=== PATIENT | female | born 1990 | race Hispanic/Latino ===

== ENCOUNTER 2016-06-29 19:58 | Inpatient (IN) | payer MEDICAID ==
[2016-06-29] MEDS ORDERED: LACTATED RINGERS 1,000 ML ONE (22:39)
[2016-06-29] MEDS ORDERED: PEPCID IV ONE ×2 (22:53→22:58)
[2016-06-29] MEDS ORDERED: REGLAN ONE (22:53)
[2016-06-29] MEDS ORDERED: BICITRA ONE (22:53)
[2016-06-29] MEDS ORDERED: PITOCin/NS 20 UNIT/1000ML DRIP 1,000 ML IV ONE (22:54)
[2016-06-29] MEDS ORDERED: REGLAN IV ONE (22:58)
[2016-06-29] MEDS ORDERED: BICITRA PO ONE (22:58)
[2016-06-29] MEDS ORDERED: LACTATED RINGERS 1,000 ML IV NR (23:00)
[2016-06-29] MEDS ORDERED: ANCEF/STERILE WATER 2 GM/20 ML 20 ML IV NR (23:00)
[2016-06-29] MEDS ORDERED: PITOCin/NS 20 UNIT/1000ML DRIP 1,000 ML IV SCH (23:00)
[2016-06-29] MEDS ORDERED: LACTATED RINGERS 1,000 ML IV SCH (23:00)
--- NOTE | 2016-06-29 23:08 | History and Physical Report ---
History of Present Illness Date of examination: 06/29/16 Date of admission: 06/29/16 22:26 Chief complaint: Leaking fluid and contractions History of present illness: Pt is a 25yo WF EDC 06/30/16; EGA 39 6/7 weeks presents to L&D complaining of leaking fluid and contractions since 1900 today. 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 However BPP is /10 and she is remote from delivery, so we will proceed with a Repeat C Section. She states course was unremarkable, and records are not available. GBS unknown. Past History Past Medical History: no pertinent history Past Surgical History: section Family/Genetic History: none Social history: no significant social history, single - Obstetrical History Expected Date of Delivery: 06/30/16 Actual Gestation: 39 Week(s) 6 Day(s) : 2 Medications and Allergies Allergies Allergy/AdvReac Type Severity Reaction Status Date / Time ibuprofen Allergy Hives Verified 06/29/16 22:43 Home Medications Medication Instructions Recorded Confirmed Last Taken Type Sulfamethoxazole/Trimethoprim 1 each PO BID #14 tablet 08/09/15 Unknown Rx [Bactrim DS TAB] traMADol [Ultram] 50 mg PO Q6H PRN #12 tablet 08/09/15 Unknown Rx Active Meds: Active Medications Lactated Ringer's (Lactated Ringers) 1,000 mls @ 125 mls/hr IV DIRECT BIANCA Review of Systems All systems: negative - Physical Exam Breasts: Positive: deferred Cardiovascular: Regular rate Lungs: Positive: Clear to auscultation Abdomen: Positive: normal appearance Genitourinary (Female): Positive: normal external genitalia Vagina: Positive: normal moisture Uterus: Positive: enlarged Extremities: Positive: normal - Obstetrical FHR: category 1 Uterine Contraction Monitor Mode: External Cervical Dilatation: 3 Cervical Effacement Percentage: 50 station: -2 Results All other labs normal. Ultrasound: report reviewed (Cunningham, DOMINGO 6.8, BPP 4/8 ) Assessment and Plan - Patient Problems (1) 39 weeks gestation of Diagnosis Date: 06/29/16 Current Visit: Yes Status: Acute Plan to address problem: A: IUP @ 39 6/7 weeks Previous C Section Non- reassuring surveillance P: Admit to L&D for repeat C Section Obtain records (2) Previous delivery affecting Diagnosis Date: 06/29/16 Current Visit: Yes Status: Acute (3) Non-reassuring electronic monitoring tracing Diagnosis Date: 06/29/16 Current Visit: Yes Status: Acute
[2016-06-29 23:15] LABS: Hematocrit 34.2 % (30.3-42.9); Hemoglobin 11.4 gm/dl (10.1-14.3); Mean Corpuscular HGB Conc 33 % (30-34); Mean Corpuscular Hemoglobin 31 pg (28-32); Mean Corpuscular Volume 93 fl (79-97); Platelet Count 234 K/mm3 (140-440); Red Blood Count 3.68 M/mm3 (3.65-5.03); Red Cell Distribution Width 13.7 % (13.2-15.2)
[2016-06-29] MEDS ORDERED: MORPHINE ONE (23:20)
[2016-06-29] MEDS ORDERED: ANCEF/STERILE WATER 2 GM/20 ML IV ONE (23:20)
[2016-06-29] MEDS ORDERED: WATER FOR IRRIG STERILE IR ONE (23:30)
[2016-06-29] MEDS ORDERED: NACL 0.9% IR ONE (23:30)
[2016-06-29] MEDS ORDERED: ePHEDrine SULFATE ONE (23:42)
[2016-06-29] MEDS ORDERED: ZOFRAN ONE (23:44)
[2016-06-30] MEDS ORDERED: NARCAN 0.4 MG/1 ML IV PRN (00:21)
[2016-06-30] MEDS ORDERED: SENOKOT PO PRN (00:21)
[2016-06-30] MEDS ORDERED: TUCKS PAD TP PRN (00:21)
[2016-06-30] MEDS ORDERED: TYLENOL PO PRN (00:21)
[2016-06-30] MEDS ORDERED: LANSINOH TP PRN (00:21)
[2016-06-30] MEDS ORDERED: MILK OF MAGNESIA PO PRN (00:21)
[2016-06-30] MEDS ORDERED: PHENERGAN PR PRN (00:21)
[2016-06-30] MEDS ORDERED: ZOFRAN IV PRN (00:21)
[2016-06-30] MEDS ORDERED: MYLICON PO PRN (00:21)
--- NOTE | 2016-06-30 00:29 | Operative Report ---
Operative Report Operative Report: Date of procedure: 06/29/2016 Pre-operative diagnosis: 1. Intrauterine at 39-6/7 weeks 2. Previous section 3. Nonreassuring surveillance Post-operative diagnosis: Same Procedure name(s): Repeat low transverse section Surgeon: Obdulio Cota MD Executive Vice President Of Sales: None Anesthesia: Spinal anesthesia by Dr. Tyler Phillips EBL: 600 MLS Findings: A 2871 g female infant Apgars 8 at 1 minute 9 at 5 minutes. Clear amniotic fluid. Normal uterus. Normal tubes and ovaries bilaterally. Procedure: After the patient was prepped and draped in usual sterile fashion, and after satisfactory level of epidural anesthesia was obtained, the skin knife was used to make a transverse skin incision through the previous skin scar. The incision was excised down to layer of the fascia, which was nicked in the midline and extended laterally using the Bovie cautery. The rectus muscles were dissected off the rectus fascia both superiorly and inferiorly. The rectus bellies in the midline, and the peritoneum was entered under direct visualization. The peritoneal incision was extended superiorly and inferiorly. A bladder flap was created and the bladder blade was then placed. The uterus was scored in a curvilinear linear fashion, entered in the midline revealing clear amniotic fluid. The 's head was delivered onto the surgical field, and the oropharynx and nasopharynx were bulb suctioned. The rest of the infant's body was delivered, cord was doubly clamped and cut and the was handed to the waiting respiratory team. Cord blood was then obtained. The placenta was manually removed from the uterus, and the uterus removed from its normal anatomical position. After gentle uterine lavage, the incision was inspected and found to be without extensions. It was then closed in 2 layers using 0 Vicryl suture in a running interlocking fashion, the second layer imbricating the first. After good hemostasis was achieved, copious amounts or irrigation was performed, and the gutters were suctioned free of blood and blood clots. The Tisseel sealant was sprayed across the uterine incision. The uterus was then returned to its normal anatomical position, and after excellent hemostasis assured, the peritoneum was reapproximated using 3-0 Vicryl suture in a running interlocking fashion, and then the rectus muscles were reapproximated using 3-0 Vicryl suture in a [id number] configuration. The fascia was then reapproximated using 0 Vicryl suture in running interlocking fashion. The subcutaneous layer was made hemostatic using Bovie cautery, the Tisseel sealant was sprayed across the fascial incision and the skin edges reapproximated using 4-0 Vicryl suture in a subcuticular fashion. Patient tolerated the procedure well was transported to recovery in stable condition.
--- NOTE | 2016-06-30 00:36 | Post Anesthesia Evaluation ---
- Post Anesthesia Evaluation Patient Participated: Yes Airway Patent: Yes Stable Respiratory Function: Yes Nausea/Vomiting: No Temp > 96.8F: Yes Pain Manageable: Yes Adequeate Hydration: Yes Anesthesia Complications: No Block Receding Appropriately: Yes Patient on Ventilator: No
--- NOTE | 2016-06-30 00:36 | Anesthesia Consultation ---
Anesthesia Consult and Med Hx Date of service: 06/30/16 - Airway Anesthetic Teeth Evaluation: Good ROM Head & Neck: Adequate Mental/Hyoid Distance: Adequate Mallampati Class: Class II Intubation Access Assessment: Probably Good - Pulmonary Exam CTA: Yes - Cardiac Exam Cardiac Exam: RRR - Pre-Operative Health Status ASA Pre-Surgery Classification: ASA2 Proposed Anesthetic Plan: Spinal - Pulmonary Hx Asthma: No - Cardiovascular System Hx Hypertension: No - Central Nervous System Hx Seizures: No Hx Psychiatric Problems: No - Endocrine Hx Renal Disease: No Hx Hypothyroidism: No Hx Hyperthyroidism: No - Hematic Hx Anemia: No Hx Sickle Cell Disease: No - Other Systems Hx Alcohol Use: No
[2016-06-30] MEDS ORDERED: D5LR 1,000 ML IV SCH (01:00)
[2016-06-30] MEDS ORDERED: SODIUM CHLORIDE FLUSH SYRINGE 10 ML IV PRN (01:00)
[2016-06-30] MEDS: PITOCin/NS 20 UNIT/1000ML DRIP 1,000 ML IV SCH ×2 (01:01→01:20)
[2016-06-30] MEDS ORDERED: BENADRYL IV PRN (03:17)
[2016-06-30] MEDS: PERCOCET 5/325 PO PRN ×4 (03:47→22:35)
[2016-06-30] MEDS: ANCEF/NS 1 GM/50 ML 50 ML IV SCH ×2 (06:35→14:25)
--- NOTE | 2016-06-30 07:39 | Ultrasound Report ---
BIOPHYSICAL PROFILE: History: Rupture of membranes. Technique: Transabdominal ultrasound with Doppler interrogation. 0 - breathing movements 2 - movements 0 - posture and tone 2 - Qualitative amniotic fluid volume 4 - TOTAL SCORE OF POSSIBLE 8 Heart Rate (bpm) 142
--- NOTE | 2016-06-30 07:40 | Ultrasound Report ---
OB LIMITED History: Rupture of membranes Technique: Transabdominal ultrasound with Doppler interrogation. Gestation: Single Amniotic Fluid: Decreased DOMINGO = 6.8 cm Heart Rate: 137 BPM
--- NOTE | 2016-06-30 11:13 | Progress Note ---
Assessment and Plan A: PP/POD#1 s/p R c/s Pain well controlled Stable P: Continue Routine PP/PO care D/C kenney, SCD's and IVF Start PO pain medication Encouraged ambulation in room this afternoon. Subjective - Subjective Date of service: 06/30/16 Principal diagnosis: Repear section Interval history: See H&P and operative note Patient reports: appetite normal, voiding normally, pain well controlled, flatus , ambulating normally : doing well, bottle feeding Objective - Vital Signs Latest vital signs: Vital Signs Temp Pulse Pulse Pulse Resp BP BP 06/30/16 07:55 99.0 F 74 18 104/50 06/30/16 04:50 98.0 F 78 20 06/30/16 03:47 18 06/30/16 02:05 97.3 F L 69 20 06/30/16 01:30 66 18 91/69 06/30/16 01:15 64 16 106/65 06/30/16 00:56 63 17 109/62 06/30/16 00:41 67 17 97/60 06/30/16 00:35 68 14 98/57 06/30/16 00:30 97.8 F 67 17 102/53 BP Pulse Ox 06/30/16 07:55 06/30/16 04:50 123/73 06/30/16 03:47 06/30/16 02:05 105/66 06/30/16 01:30 97 06/30/16 01:15 96 06/30/16 00:56 97 06/30/16 00:41 99 06/30/16 00:35 99 06/30/16 00:30 99 Intake and Output 06/29/16 06/30/16 06/30/16 22:59 06:59 14:59 Intake Total 1740 Output Total 900 Balance 840 Intake: IV 1500 PITOCin/NS 20 UNIT/1000ML 500 DRIP 1,000 ML @ 125 mls/ hr IV TITR BIANCA Rx#: [id number] Oral 240 Output: Urine 900 Uretheral (Kenney) 600 Indwelling Catheter 300 Other: Total, Intake Amount 240 Total, Output Amount 300 Weight 86.183 kg Estimated Blood Loss 600 - Exam Breasts: Present: normal Cardiovascular: Present: Regular rate Lungs: Present: Normal air movement Abdomen: Present: normal appearance, soft Vulva: both: normal Uterus: Present: firm, fundal height below umbilicus (-1) Extremities: Present: normal Deep Tendon Reflex Grade: Normal +2 Incision: Present: normal, dry, intact, dressed (LTI, closed with pressure drressing, CDI) - Labs Labs: Abnormal lab results 06/29/16 Range/Units 22:30 WBC 20.0 H (4.5-11.0) K/mm3
[2016-06-30] MEDS: FEOSOL PO SCH (11:28)
[2016-06-30] MEDS: PRENATAL VITAMIN PO SCH (11:29)
[2016-06-30] MEDS: NORCO 5/325 PO PRN ×2 (14:26→20:16)
[2016-06-30 15:19] LABS: Hematocrit 28.5 % (30.3-42.9); Hemoglobin 9.6 gm/dl (10.1-14.3)
--- NOTE | 2016-06-30 15:30 | Progress Note ---
Subjective Date of service: 06/30/16 Principal diagnosis: Repear section Interval history: 1st POD after Patient is in the bed, comfortable. Pain is well controlled with pain meds. Ambulated well. No residual neurological deficit. No anesthesia complications Objective - Constitutional Vitals: Vital Signs - 12hr 06/30/16 06/30/16 06/30/16 03:47 04:50 07:55 Temperature 98.0 F 99.0 F Pulse Rate [ 74 Left Radial] Pulse Rate [ 78 Right] Respiratory 18 20 18 Rate Blood Pressure 104/50 [Left Arm] Blood Pressure 123/73 [Right Arm] 06/30/16 12:07 Temperature 98.5 F Pulse Rate [ 72 Left Radial] Pulse Rate [ Right] Respiratory 16 Rate Blood Pressure 96/50 [Left Arm] Blood Pressure [Right Arm] - Labs CBC & Chem 7: 06/30/16 15:02 Labs: Abnormal lab results 06/29/16 06/30/16 Range/Units 22:30 15:02 WBC 20.0 H (4.5-11.0) K/mm3 Hgb 9.6 L (10.1-14.3) gm/dl Hct 28.5 L (30.3-42.9) %
--- NOTE | 2016-06-30 16:18 | Query-Anemia ---
Dear Dr. Obdulio Cota Date:June 30, 2016 News Videotape Editor/CDS: Kameron Bland Phone#: Exercise your independent professional judgment when responding to this query. Questions asked do not imply a particular answer is desired or expected. We greatly appreciate your clarification on this issue. Clinical Documentation States: 25 y/o WF @ 39 6/7 weeks with history of previous is admitted for /10 BPP and unknown GBS status. H&P by Dr. Cota on 06/29 states : "(3) Non-reassuring electronic monitoring tracing" Operative Report by Dr. Cota on 06/30 states : "EBL: 600 MLS" Clinical Findings Show: 06/29 06/30 Hgb 11.4 9.6 L Hct 34.2 28.5 L Treatment: Ferrous Sulfate (Feosol) 325mg PO QDAY BIANCA Etiology: [ ] Anemia due to acute blood loss [ ] Anemia due to chronic blood loss [ ] Anemia secondary to ESRD [ ] Anemia secondary to neoplastic disease [ ] Iron deficiency anemia due to malabsorption [ ] GI Bleed from: [ ] Anemia of chronic disease ,Other: [ ] Precipitous Drop in Hemoglobin [ ] Precipitous Drop in Hematocrit [ ] Other: [ ] Unable to determine [ ] Comment/Explanation: Present on Admission: [ ] Yes (Y) [ ] Clinically undeterminable (W) [ ] No (N) Please also document response in your Progress Notes and/or Discharge Summary and indicate if the condition was present on admission. MTDD
[2016-07-01] MEDS ORDERED: M-M-R II VACCINE SUB-Q ONE (00:22)
[2016-07-01] MEDS: PERCOCET 5/325 PO PRN ×2 (05:38→12:15)
[2016-07-01] MEDS ORDERED: BOOSTRIX IM ONE (06:00)
[2016-07-01 08:55] VITALS: BP 102/58
[2016-07-01] MEDS: PRENATAL VITAMIN PO SCH (09:45)
[2016-07-01] MEDS: FEOSOL PO SCH (09:45)
--- NOTE | 2016-07-01 10:00 | Progress Note ---
Assessment and Plan A: PP/POD#2 s/p R c/s Pain well controlled Stable P: Continue Routine PP/PO care Encouraged ambulation Plan discharge home this pm Subjective - Subjective Date of service: 07/01/16 Principal diagnosis: Repear section Interval history: See H&P and operative note Patient reports: appetite normal, voiding normally, pain well controlled, flatus , ambulating normally : doing well, nursing well Objective - Vital Signs Latest vital signs: Vital Signs Temp Pulse Pulse Resp BP 07/01/16 08:10 98.1 F 66 14 102/58 07/01/16 05:38 18 06/30/16 23:50 98.4 F 64 16 94/56 06/30/16 22:35 18 06/30/16 20:36 97.6 F 77 16 111/66 06/30/16 20:16 18 06/30/16 16:44 98.8 F 76 18 90/50 06/30/16 12:07 98.5 F 72 16 96/50 Intake and Output 06/30/16 07/01/16 07/01/16 22:59 06:59 14:59 Intake Total 360 360 Output Total 600 Balance -240 360 Intake: Oral 360 Intake, Free Water 360 Output: Urine 600 Void 600 Other: Total, Intake Amount 360 Total, Output Amount 600 # Voids Void 1 - Exam Breasts: Present: normal Cardiovascular: Present: Regular rate Lungs: Present: Normal air movement Abdomen: Present: normal appearance, soft Vulva: both: normal (Scnat rubra lochia, no clots) Uterus: Present: firm, fundal height below umbilicus (-1) Extremities: Present: normal Deep Tendon Reflex Grade: Normal +2 Incision: Present: normal (LTI, pressure dressing removed. Closed with SQ sutures and steri strips, CDI, small amt old dry blood noted), dry, intact - Labs Labs: Abnormal lab results 06/30/16 Range/Units 15:02 Hgb 9.6 L (10.1-14.3) gm/dl Hct 28.5 L (30.3-42.9) %
--- NOTE | 2016-07-01 10:02 | Discharge Summary ---
Providers - Providers Date of Admission: 06/29/16 22:26 Date of discharge: 07/01/16 Attending physician: SALONI HERNANDEZ MD Primary care physician: SALONI HERNANDEZ MD Hospitalization Reason for admission: section, IUP at term Delivery: Procedure: repeat low transverse Procedure details: See H&P and operative note Incision: normal (LTI, closed with SQ sutures and steri strips, small amt old dried blood noted. ), suppurative, intact Other procedures: none complications: none Discharge diagnosis: IUP at term delivered [place] baby: female Condition at discharge: Good Disposition: DISCHARGED TO HOME OR SELFCARE Plan - Discharge Medications Prescriptions: Ferrous Sulfate [Feosol 325 MG tab] 325 mg PO BID #60 tablet HYDROcodone/APAP 5-325 [[place] 5/325] 1 each PO Q6HR PRN #30 tablet PRN Reason: Pain Vit W-Ca,Fe,FA(<1 mg) [ Vitamins] 1 each PO DAILY #30 tablet - Provider Discharge Summary Activity: routine, no sex for 6 weeks, no heavy lifting 4 weeks, no strenuous exercise Diet: routine Instructions: routine Additional instructions: [] Smoking cessation referral if applicable(refer to patient education folder for contact #) [] Refer to [facility] Booklet Call your doctor immediately for: * Fever > 100.5 * Heavy vaginal bleeding ( >1 pad per hour) * Severe persistent headache * Shortness of breath * Reddened, hot, painful area to leg or breast * Drainage or odor from incision. * Keep incision clean and dry at all times and follow doctor's instructions regarding bathing/showering - Follow up plan Follow up: CARLOS FOWLER CNM [Advanced Practice Nurse] - 7 Days
== END 2016-07-01 16:20 | disposition home or self-care (01) | DRG 766 ==
LOC: TRG 19:58 → LD 22:26 → APU 06-30 00:43 → OB 06-30 02:11
PROVIDERS: ADMIT Obstetrics & Gynecology; ATTEND Obstetrics & Gynecology
PROC: 10D00Z1 Extraction of Products of Conception, Low, Open Approach (ICD-10-PCS; principal; 2016-06-29)
DX: O34.211 Maternal care for low transverse scar from previous cesarean delivery (principal); O76 Abnormality in fetal heart rate and rhythm complicating labor and delivery; Z3A.39 39 weeks gestation of pregnancy; Z37.0 Single live birth; Z88.8 Allergy status to other drugs, medicaments and biological substances
CPT/HCPCS: 36415; 76815; 76819; 85014; 85018; 85027; 86850; 86900; 86901; 90471; 90715; 99211; A6250; G0463; J0690; J1200; J2270; J2405; J2590; J2765; J7120; J7121

== ENCOUNTER 2017-06-08 19:29 | Emergency (ER) | payer SELFPAY ==
[2017-06-08] MEDS ORDERED: NACL 0.9% 1000 ML 1,000 ML IV ONE ×2 (19:30→23:15)
[2017-06-08] MEDS ORDERED: DILAUDID IV ONE ×2 (19:30→21:30)
[2017-06-08] MEDS ORDERED: NACL 0.9% 1,000 ML IR ONE (19:47)
[2017-06-08] MEDS ORDERED: NACL 0.9% 2,500 ML IR ONE (19:48)
[2017-06-08 19:49] LABS: Hematocrit 46.2 % (30.3-42.9); Hemoglobin 15.1 gm/dl (10.1-14.3); Mean Corpuscular HGB Conc 33 % (30-34); Mean Corpuscular Hemoglobin 32 pg (28-32); Mean Corpuscular Volume 98 fl (79-97); Platelet Count 266 K/mm3 (140-440); Red Cell Distribution Width 14.1 % (13.2-15.2)
[2017-06-08] MEDS ORDERED: XYLOCAINE 2% INFILTRATI ONE (19:50)
[2017-06-08 20:09] LABS: Alanine Aminotransferase 132 units/L (7-56); Albumin 3.1 g/dL (3.9-5); BUN/Creatinine Ratio 8; Blood Urea Nitrogen 4 mg/dL (7-17); Calcium 7.7 mg/dL (8.4-10.2); Hemolysis Index 63
[2017-06-08 20:39] LABS: Band Neutrophils # (Manual) 0.3 K/mm3; Basophils % (Manual) 0 % (0.0-1.8); Platelet Estimate Consistent w Auto; RBC Morphology Normal; Total Cells Counted 100
--- NOTE | 2017-06-08 20:49 | XRay Report ---
FINAL REPORT EXAM: XR CHEST 1V AP HISTORY: CHEST PAIN TECHNIQUE: Frontal chest x-ray Comparison: None FINDINGS: Normal heart size. Exam is performed slightly apical lordotic. There are mild bilateral suprahilar infiltrates. There are no pleural effusions. Imaged axial skeleton is unremarkable. IMPRESSION: Mild bilateral suprahilar infiltrates.
[2017-06-08] MEDS ORDERED: DILAUDID ONE (21:32)
--- NOTE | 2017-06-08 21:40 | Cat Scan Report ---
FINAL REPORT PROCEDURE: CT HEAD/BRAIN WO CON TECHNIQUE: Computerized tomography of the head was performed without contrast material. HISTORY: HEAD INJURY,PAIN COMPARISON: No prior studies are available for comparison. FINDINGS: Skull and scalp: Mild moderate degree right parietal scalp swelling is noted. There is deformity of the medial wall of right orbit which appears to be of chronic nature.. Paranasal sinuses: Normal. Ventricles and subarachnoid spaces: Normal. Cerebrum: No evidence of hemorrhage, acute infarction or mass . Cerebellum and brainstem: No evidence of hemorrhage, acute infarction or mass. Vasculature: Normal. Comments: None. IMPRESSION: No acute intracranial abnormality. 

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
--- NOTE | 2017-06-08 21:57 | Cat Scan Report ---
FINAL REPORT PROCEDURE: CT FACIAL BONES WO CON TECHNIQUE: Computerized tomography of the facial bones and soft tissues with axial and coronal sections performed from the cranial aspect of the frontal sinuses to the caudal portion of the mandible without contrast material. HISTORY: HEAD INJURY,PAIN COMPARISON: No prior studies are available for comparison. FINDINGS: There is cortical irregularity of the right nasal bone, compatible with a minimally displaced fracture. The paranasal sinuses are well aerated. The temporomandibular joints are intact. There is a defect and depression of the right medial orbital wall, without adjacent soft tissue edema, likely related to an old fracture. There is air in the submandibular soft tissues, related to overlying laceration. There is also laceration on the right supraorbital soft tissues. IMPRESSION: Minimally displaced right nasal bone fracture. Right medial orbital wall fracture is favored to be chronic.
--- NOTE | 2017-06-08 22:17 | XRay Report ---
FINAL REPORT PROCEDURE: XR FEMUR 2+V LT TECHNIQUE: Left femur, AP and lateral views HISTORY: leg PAIN post trauma COMPARISON: No prior studies are available for comparison. FINDINGS: There is a comminuted fracture of the proximal left tibia and fibula. The left hip joint appears intact. No femur fracture is noted. IMPRESSION: No left femur fracture is identified. Fractures of the left proximal tibia and fibula
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
[2017-06-08] MEDS ORDERED: MORPHINE IV ONE (22:30)
--- NOTE | 2017-06-08 23:08 | Cat Scan Report ---
FINAL REPORT PROCEDURE: CT ABDOMEN PELVIS W CON TECHNIQUE: Computerized axial tomography of the abdomen and pelvis was performed after the IV injection of iodinated nonionic contrast. HISTORY: CHEST PAIN COMPARISON: No prior studies are available for comparison. FINDINGS: A linear laceration is noted at the junction of right and left lobes of liver. Additional irregular lacerations are identified involving the right lobe liver. Acute fractures are noted involving right 4th through 7th ribs. Small pockets of air are identified in the inferior-most pleural space anteriorly. The main portal vein and the central branches appear intact. Mild degree of perihepatic or perisplenic fluid is noted which is of hypodense nature. Mild degree of free fluid is also noted in the pelvic cavity. There is no free air. Mild degree pericholecystic fluid is noted. Spleen demonstrates irregular outlines anteriorly pancreas, adrenal glands and kidneys are unremarkable. There is no hydronephrosis or pre nephric fluid collection. Aorta is of normal caliber. Small bowel loops are within normal limits. Moderate degree residual stool is noted. A ring-enhancing lesion is noted in the left ovary measuring about 1.6 centimeters most likely representing a ruptured follicle. IMPRESSION: Multiple lacerations involving the liver as described above. Multiple acute right lower rib fractures with possible old tiny right pneumothorax. irregular outlines of the anterior spleen are suspicious for splenic fracture. Differential diagnosis includes normal splenic lobulations. Mild degree ascites.
--- NOTE | 2017-06-08 23:13 | Cat Scan Report ---
FINAL REPORT PROCEDURE: CT CHEST W CON TECHNIQUE: Computerized axial tomography of the chest was performed during the IV injection of iodinated nonionic contrast. HISTORY: CHEST PAIN COMPARISON: No prior studies are available for comparison. TECHNICAL QUALITY: Satisfactory. FINDINGS: Multiple acute rib fractures are noted involving the right 2nd through 7th ribs with moderate degree supper a ray of the upper rib fractures. A few small pockets of air are identified in the right pleural space inferiorly and at the sites of rib fractures. Otherwise bilateral lungs demonstrate subsegmental atelectatic changes in the posterior lung bases. Aortic outlines are well maintained without evidence of aortic rupture. There is no mediastinal hematoma. Hilar structures are within normal limits. Vertebral height is normal. Sternum is intact. IMPRESSION: Multiple acute right sided fractures involving 2nd through 7th ribs with tiny pockets of right pneumothorax.
[2017-06-08] MEDS ORDERED: NACL 0.9% 1000 ML 1,000 ML ONE (23:41)
[2017-06-09 00:40] VITALS: BP 100/61
[2017-06-09 01:11] LABS: Bacteria,Urine 2+ /HPF (Negative); Bilirubin,Urine NEG (Negative); Blood,Urine NEG (Negative); Color,Urine Red (Yellow); Nitrite,Urine NEG (Negative); Protein,Urine <15 mg/dL mg/dL (Negative); Urobilinogen,Urine < 2.0 mg/dL (<2.0)
[2017-06-09 01:12] LABS: RBC,Urine > 182.0 /HPF (0.0-6.0)
[2017-06-09] MEDS ORDERED: NACL 0.9% 1000 ML 1,000 ML ONE (01:17)
[2017-06-09] MEDS ORDERED: DILAUDID ONE (01:17)
== END 2017-06-09 01:00 | disposition other institution (70) ==
LOC: ED 19:29
DX: S36.113A Laceration of liver, unspecified degree, initial encounter (principal); S36.039A Unspecified laceration of spleen, initial encounter; S82.102A Unspecified fracture of upper end of left tibia, initial encounter for closed fracture; S82.402A Unspecified fracture of shaft of left fibula, initial encounter for closed fracture; S27.0XXA Traumatic pneumothorax, initial encounter; S22.31XA Fracture of one rib, right side, initial encounter for closed fracture; F17.200 Nicotine dependence, unspecified, uncomplicated; Z88.6 Allergy status to analgesic agent; Z88.1 Allergy status to other antibiotic agents; S22.41XA Multiple fractures of ribs, right side, initial encounter for closed fracture; V49.9XXA Car occupant (driver) (passenger) injured in unspecified traffic accident, initial encounter; Y93.89 Activity, other specified; Y92.89 Other specified places as the place of occurrence of the external cause; Y99.8 Other external cause status
CPT/HCPCS: 36415; 70450; 70486; 71045; 71260; 73552; 73590; 74177; 80053; 81001; 84703; 85007; 85025; 96361; 96374; 96375; 96376; 99291; 99292; J1170; J2270; J7030; Q9967; 99285

== ENCOUNTER 2022-02-23 05:19 | Emergency (ER) | payer OTHER ==
[2022-02-23 06:36] VITALS: BP 111/63
[2022-02-23] MEDS ORDERED: predniSONE 20 MG TAB PO ONE (10:02)
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
== END 2022-02-23 12:12 | disposition left against medical advice (07) ==
LOC: ED 05:19
DX: M54.2 Cervicalgia (principal); F17.200 Nicotine dependence, unspecified, uncomplicated; Z88.6 Allergy status to analgesic agent; Z88.1 Allergy status to other antibiotic agents; Z98.890 Other specified postprocedural states; V87.7XXA Person injured in collision between other specified motor vehicles (traffic), initial encounter; Y93.89 Activity, other specified; Y92.488 Other paved roadways as the place of occurrence of the external cause; Y99.8 Other external cause status
CPT/HCPCS: 99281